=== PATIENT | female | born 1985 | race Caucasian/White ===

== ENCOUNTER → 2016-12-30 | Outpatient (CLI) | payer BC ==
[2016-12-30 17:56] LABS: HEMATOCRIT 40.3 % (37-47); MEAN CORPUSCULAR HEMOGLOBIN 32.6 pg (25-34); MEAN CORPUSCULAR HGB CONC 35.5 g/dl (32-36); MEAN PLATELET VOLUME 10.5 fL (7.4-10.4); PLATELET COUNT 331 K/uL (130-400); RED BLOOD COUNT 4.38 M/uL (4.2-5.4); WHITE BLOOD COUNT 10.85 K/uL (4.8-10.8)
[2016-12-30 18:19] LABS: ALT/SGPT 21 U/L (12-78); AST/SGOT 9 U/L (15-37); BLOOD UREA NITROGEN 10 mg/dl (7-18); BUN/CREATININE RATIO 14.7 (10-20); CALCIUM 8.9 mg/dl (8.5-10.1); CARBON DIOXIDE 27 mmol/L (21-32); CHLORIDE 106 mmol/L (98-107); CREATININE 0.71 mg/dl (0.60-1.20); GLUCOSE 93 mg/dl (70-99); POTASSIUM 3.7 mmol/L (3.5-5.1); SODIUM 140 mmol/L (136-145); URIC ACID 3.7 mg/dl (2.6-7.2)
[2016-12-30 18:26] LABS: THYROXINE (T4) 9.2 mcg/dl (4.5-10.9)
[2016-12-30 18:27] LABS: T3 TOTAL 1.21 ng/ml (0.60-1.81)
[2016-12-30 18:30] LABS: ALB/GLOB RATIO 1.3 (0.9-2); ALKALINE PHOSPHATASE 64 U/L (45-117)
[2017-01-06 04:46] LABS: 18KDIGG BAND NONREACTIVE (NONREACTIVE); 23KDIGG BAND NONREACTIVE (NONREACTIVE); 23KDIGM BAND NONREACTIVE (NONREACTIVE); 28KDIGG BAND NONREACTIVE (NONREACTIVE); 30KDIGG BAND NONREACTIVE (NONREACTIVE); 39KDIGG BAND NONREACTIVE (NONREACTIVE); 39KDIGM BAND NONREACTIVE (NONREACTIVE); 41KDIGG BAND REACTIVE (NONREACTIVE); 41KDIGM BAND NONREACTIVE (NONREACTIVE); 45KDIGG BAND NONREACTIVE (NONREACTIVE); 58KDIGG BAND NONREACTIVE (NONREACTIVE); 66KDIGG BAND NONREACTIVE (NONREACTIVE); 93KDIGG BAND NONREACTIVE (NONREACTIVE)
== END | disposition home or self-care (01) ==
LOC: C.LAB 17:19
PROVIDERS: ATTEND Physician Assistant
DX: B27.89 Other infectious mononucleosis with other complication (principal); R53.81 Other malaise; L04.0 Acute lymphadenitis of face, head and neck; R73.01 Impaired fasting glucose; N80.0 Endometriosis of uterus; E66.9 Obesity, unspecified